=== PATIENT | male | born 1950 | race Caucasian/White ===

== ENCOUNTER 2020-11-10 11:23 | Outpatient (CLI) | payer MEDICARE ==
[2020-11-10 12:40] LABS: ALT (SGPT) 41 U/L (8-55); AST (SGOT) 22 U/L (5-34); Albumin 4.2 g/dL (3.4-4.8); Alkaline Phosphatase 60 U/L (40-110); Anion Gap 14 mmol/L (10-20); BUN (Urea Nitrogen) 31 mg/dL (8.4-25.7); Bilirubin, Total 0.9 mg/dL (0.2-1.2); Calc. Creatinine Clearance 0 mL/min (70-130); Carbon Dioxide 24 mmol/L (23-31); Cardiac Risk 3.9 (Less than 4.5); Chloride 109 mmol/L (98-107); Cholesterol 137 mg/dl (< 200 Desired); Glucose 128 mg/dL (80-115); HDL Cholesterol 35 mg/dL (>60 Neg Risk); LDL Cholesterol, Calculated 59 mg/dL; Potassium 4.2 mmol/L (3.5-5.1); Protein, Total 7.2 g/dL (5.8-8.1); Sodium 143 mmol/L (136-145); Triglycerides 215 mg/dL (Less than 150); Uric Acid 4.2 mg/dL (3.5-7.2)
[2020-11-10 21:49] LABS: Hemoglobin A1c 7.5 % (4.0-6.0)
== END 2020-11-10 11:24 | disposition home or self-care (01) ==
LOC: MADLAB 11:23
PROVIDERS: ATTEND Family Medicine
DX: E11.9 Type 2 diabetes mellitus without complications (principal); M10.9 Gout, unspecified
CPT/HCPCS: 36415; 80053; 80061; 83036; 84550

== ENCOUNTER 2021-08-19 13:53 | Emergency (ER) | payer MEDICARE | END 2021-08-19 15:24 | disposition home or self-care (01) | LOC: MADERS 13:53 | DX: U07.1 COVID-19 (principal); J12.82 Pneumonia due to coronavirus disease 2019; E11.9 Type 2 diabetes mellitus without complications; E78.5 Hyperlipidemia, unspecified; I10 Essential (primary) hypertension; M10.9 Gout, unspecified; Z79.4 Long term (current) use of insulin; Z79.899 Other long term (current) drug therapy; Z79.82 Long term (current) use of aspirin | CPT/HCPCS: 71045 ==

== ENCOUNTER 2023-12-23 09:56 | Emergency (ER) | payer MEDICARE | END 2023-12-23 11:00 | disposition home or self-care (01) | LOC: MADERS 09:56 | DX: T63.441A Toxic effect of venom of bees, accidental (unintentional), initial encounter (principal); E11.9 Type 2 diabetes mellitus without complications; I10 Essential (primary) hypertension; Z79.899 Other long term (current) drug therapy; Z79.4 Long term (current) use of insulin | CPT/HCPCS: 99283 ==